=== PATIENT | male | born 1965 | race Caucasian/White ===

== ENCOUNTER 2017-11-13 23:26 | Emergency (ER) | payer OTHER ==
[~2017-11-13] VITALS: Ht 188 cm; Wt 111.1 kg
[2017-11-13] MEDS ORDERED: KETOROLAC TROMETHAMINE 30 MG/ML VIAL IV STA (23:35)
[2017-11-13 23:49] LABS: BASOPHILS # (AUTO) 0.3 (0.0-0.1); BASOPHILS % 1.5 % (0.0-1.0); EOSINOPHILS # (AUTO) 1.3 (0.0-0.4); EOSINOPHILS % 6.8 % (0.0-6.0); HEMATOCRIT 38.5 % (38.2-49.6); HEMOGLOBIN 13.4 g/dL (14.0-18.0); LYMPHOCYTES # (AUTO) 4.2 (1.0-3.2); LYMPHOCYTES % 22.8 % (18.0-39.1); MEAN CORPUSCULAR HEMOGLOBIN 30.4 pg (28-32); MEAN CORPUSCULAR HGB CONC 34.8 g/dL (31-35); MEAN CORPUSCULAR VOLUME 87.3 fL (81-99); MONOCYTES # (AUTO) 2.2 (0.2-0.8); NEUTROPHILS # (AUTO) 10.3 (2.1-6.9); NEUTROPHILS % 56.5 % (38.7-80.0); PLATELET COUNT 377 x10e3/uL (140-360); RED BLOOD COUNT 4.41 x10e6/uL (4.3-5.7); RED CELL DISTRIBUTION WIDTH 12.8 % (11.7-14.4)
[2017-11-13 23:50] LABS: BILIRUBIN,URINE NEGATIVE (NEGATIVE); CLARITY,URINE CLEAR (CLEAR); COLOR,URINE YELLOW (YELLOW); KETONES,URINE NEGATIVE (NEGATIVE); LEUKOCYTE ESTERASE ,URINE NEGATIVE (NEGATIVE); NITRITE,URINE NEGATIVE (NEGATIVE); PROTEIN,URINE DIPSTICK NEGATIVE (NEGATIVE); URINE UROBILINOGEN 0.2 mg/dL (0.2 - 1)
[2017-11-14 00:02] LABS: BACTERIA,URINE RARE /HPF; EPITHELIAL CELLS,URINE RARE /LPF; RBC,URINE 0-5 /HPF (0-5); WBC,URINE (MAN) 0-5 /HPF (0-5)
[2017-11-14 00:14] LABS: ALANINE AMINOTRANSFERASE 15 IU/L (0-55); ALBUMIN 3.8 g/dL (3.5-5.0); ALBUMIN/GLOBULIN RATIO 0.8 (0.8-2.0); ALKALINE PHOSPHATASE 90 IU/L (40-150); ANION GAP 16.9 mmol/L (8-16); BLOOD UREA NITROGEN 14 mg/dL (7-26); BUN/CREATININE RATIO 12 (6-25); CARBON DIOXIDE 23 mmol/L (22-29); CHLORIDE 103 mmol/L (98-107); CREATINE KINASE 178 IU/L (30-200); CREATININE, SERUM 1.15 mg/dL (0.72-1.25); EST GLOMERULAR FILTRATION RATE > 60 ML/MIN (60-); GLUCOSE 96 mg/dL (74-118); POTASSIUM 4.9 mmol/L (3.5-5.1); SODIUM 138 mmol/L (136-145)
[2017-11-14 00:20] LABS: TROPONIN I < 0.001 ng/mL (0-0.300)
--- NOTE | 2017-11-14 00:27 | Diagnostic Imaging Report ---
EXAM: CT ABDOMEN AND PELVIS without IV CONTRAST DATE: 11/13/2017 11:34 PM Time stamp on Exam: 2346 hours INDICATION: Severe left flank pain COMPARISON: None TECHNIQUE: The abdomen and pelvis were scanned using a multidetector helical scanner. Coronal and sagittal reformations were obtained. Renal stone protocol performed. IV Contrast: None Oral Contrast: None CTDIvol has been reviewed. It is below the limits set by the Radiation Protocol Committee (RPC). FINDINGS: LOWER THORAX: Left lingular and lower lobe atelectasis and small left pleural effusion LIVER: Hepatomegaly and hepatic steatosis. BILIARY: Normal gallbladder. No ductal dilation. SPLEEN: No masses PANCREAS: No masses ADRENALS: No nodules RIGHT KIDNEY: No nephroureterolithiasis or hydronephrosis. LEFT KIDNEY: No nephroureterolithiasis or hydronephrosis. GI TRACT: No wall thickening or obstruction. Small sliding hiatal hernia. Sigmoid colon diverticulosis without CT findings of diverticulitis. VESSELS: Minimal atherosclerotic changes of the abdominal aorta without aneurysm. PERITONEUM/RETROPERITONEUM: No free air or fluid LYMPH NODES: No lymphadenopathy REPRODUCTIVE ORGANS: Normal BLADDER: Normal SOFT TISSUES: Normal BONES: No suspicious bone lesions. IMPRESSION: No nephroureterolithiasis or hydronephrosis. Left lower lobe atelectasis and small pleural effusion. Signed by: Dr. Monica Murray M.D. on 11/14/2017 12:23 AM
--- NOTE | 2017-11-14 00:28 | Diagnostic Imaging Report ---
EXAM: CHEST SINGLE (PORTABLE), AP 1 view DATE: 11/13/2017 11:34 PM Time stamp on exam: 2344 hours INDICATION: Shortness of breath COMPARISON: CT of the abdomen and pelvis November 13, 2017 FINDINGS: LINES/TUBES: None LUNGS: Left lower lobe atelectasis PLEURA: Small left pleural effusion. HEART AND MEDIASTINUM: Normal size and contour. BONES AND SOFT TISSUES: No acute findings. IMPRESSION: Left lower lobe atelectasis and small left pleural effusion. Signed by: Dr. Monica Murray M.D. on 11/14/2017 12:24 AM
--- NOTE | 2017-11-14 02:10 | Diagnostic Imaging Report ---
EXAM: CT CHEST W DATE: 11/14/2017 1:07 AM Time stamp on exam: 0122 hours INDICATION: Left-sided pain COMPARISON: CT of the abdomen and pelvis November 13, 2017 TECHNIQUE: Multidetector CT scanning of the chest was performed. Coronal and sagittal multiplanar reformations were obtained. Routine protocol IV Contrast: 100 cc 370 CTDIvol has been reviewed. It is below the limits set by the Radiation Protocol Committee (RPC). FINDINGS: LUNGS AND AIRWAYS: The trachea and major bronchi are unremarkable. Left lingular and lower lobe atelectasis. PLEURA: Small left pleural effusion. Incidental small fat-containing left Morgagni hernia. HEART, MEDIASTINUM, VESSELS: Normal appearance of heart, mediastinum and great vessels. No evidence of a pulmonary embolism. UPPER ABDOMEN: No acute findings. Small sliding hiatal hernia. MUSCULOSKELETAL: Acute/subacute left lateral fourth, fifth, sixth, seventh rib fractures. And posterior rib fractures on the left at ribs 5 and 6. IMPRESSION: Acute/subacute left lateral fourth through seventh rib fractures and posterior left rib fractures 5 and 6. Associated pleural thickening and atelectasis and small pleural effusion (likely old hemothorax). No evidence of a pulmonary embolism. Signed by: Dr. Monica Murray M.D. on 11/14/2017 2:06 AM
[2017-11-14] MEDS ORDERED: IOPAMIDOL 370 MG/ML 200 ML INFUS..BTL INJ ONE (06:55)
[2017-11-14] MEDS ORDERED: SODIUM CHLORIDE 0.9% 50ML 50 ML ONE (06:55)
== END 2017-11-14 02:29 | disposition home or self-care (01) ==
LOC: ER 23:26
DX: R09.1 Pleurisy (principal); R10.9 Unspecified abdominal pain; Z82.49 Family history of ischemic heart disease and other diseases of the circulatory system
CPT/HCPCS: 36415; 71010; 71260; 74176; 80053; 81001; 82550; 82553; 84484; 85025; 85379; 93005; 99284; J1885; Q9967